=== PATIENT | female | born 1990 | race African-American/Black ===

== ENCOUNTER 2018-02-08 02:41 | Emergency (ER) | payer OTHER ==
[2018-02-08] MEDS: BUPIVACAINE 0.25% (MPF) 10 ML 10 ML VIAL INJ ×2 (05:00→05:41)
[2018-02-08] MEDS: BUPIVACAINE 0.25% (MPF) 30 ML INJ INJ (05:41)
== END 2018-02-08 05:54 | disposition home or self-care (01) ==
LOC: FTE 02:41
DX: M62.830 Muscle spasm of back (principal)
CPT/HCPCS: 20552; 99283-25